=== PATIENT | female | born 2000 | race Caucasian/White ===

== ENCOUNTER → 2022-01-06 15:08 | Outpatient (BNVA) | payer OTHER, SELFPAY | PROVIDERS: Visit Provider Registered Nurse Neonatal Intensive Care | DX: J02.9 Acute pharyngitis, unspecified (principal); J06.9 Acute upper respiratory infection, unspecified | CPT/HCPCS: 87071; 87880 ==

== ENCOUNTER → 2022-01-25 10:00 | Outpatient (BNVA) | payer OTHER, SELFPAY | PROVIDERS: Visit Provider Nurse Practitioner Women's Health | DX: Z34.90 Encounter for supervision of normal pregnancy, unspecified, unspecified trimester (principal); Z32.00 Encounter for pregnancy test, result unknown; Z3A.00 Weeks of gestation of pregnancy not specified | CPT/HCPCS: 81025; 84315 ==

== ENCOUNTER → 2022-02-09 11:40 | Outpatient (BNVA) | payer OTHER, SELFPAY | PROVIDERS: Visit Provider Obstetrics & Gynecology | DX: Z34.00 Encounter for supervision of normal first pregnancy, unspecified trimester (principal) | CPT/HCPCS: 80307; 84315; 84443; 86762; 86803; 87086; 87340; 87491; 87591; 87661; 87806; 88175 ==

== ENCOUNTER 2022-02-17 08:41 | Outpatient (CLI) | payer OTHER, SELFPAY ==
[2022-02-17 09:09] LABS: Hematocrit 36.7 % (37.0-47.0); Hemoglobin 12.4 g/dL (11.5-15.3); Mean Corpuscular HGB Conc 33.8 g/dL (30.0-36.0); Mean Corpuscular Volume 88.6 fl (81-99); Mean Platelet Volume 10.4 fL (7.4-10.4); Platelet Count 237 10^3/cmm (130-400); Red Blood Count 4.14 10^6/uL (4.1-5.3); Red Cell Distribution Width 12.2 % (12.1-15.1); White Blood Count 8.4 10^3/uL (4.0-10.0)
[2022-02-20 09:59] LABS: RPR w(Moniotor) w/REFL Titer NON-REACTIVE (NON-REACTIVE)
== END 2022-02-17 08:42 | disposition home or self-care (01) ==
LOC: LAB 08:43
PROVIDERS: Visit Provider Obstetrics & Gynecology
DX: Z34.00 Encounter for supervision of normal first pregnancy, unspecified trimester (principal)
CPT/HCPCS: 36415; 80307; 85027; 86592; 86850; 86900; 87086

== ENCOUNTER → 2022-05-11 08:45 | Outpatient (BNVA) | payer OTHER, SELFPAY | PROVIDERS: Visit Provider Nurse Practitioner Women's Health | DX: Z34.00 Encounter for supervision of normal first pregnancy, unspecified trimester (principal) | CPT/HCPCS: 81000 ==

== ENCOUNTER → 2022-06-12 08:26 | Outpatient (BNVA) | payer OTHER, SELFPAY | PROVIDERS: Visit Provider Obstetrics & Gynecology | DX: Z34.00 Encounter for supervision of normal first pregnancy, unspecified trimester (principal) | CPT/HCPCS: 81000; 82950 ==

== ENCOUNTER → 2022-06-19 08:17 | Outpatient (BNVA) | payer OTHER, SELFPAY | PROVIDERS: Visit Provider Obstetrics & Gynecology | DX: Z34.00 Encounter for supervision of normal first pregnancy, unspecified trimester (principal) | CPT/HCPCS: 82951; 82952; 85025 ==

== ENCOUNTER → 2022-06-26 10:00 | Outpatient (BNVA) | payer OTHER, SELFPAY | PROVIDERS: Visit Provider Obstetrics & Gynecology | DX: Z34.00 Encounter for supervision of normal first pregnancy, unspecified trimester (principal); R82.90 Unspecified abnormal findings in urine | CPT/HCPCS: 81000; 87086 ==

== ENCOUNTER → 2022-07-13 07:55 | Outpatient (BNVA) | payer OTHER, BC, MEDICAID, SELFPAY | PROVIDERS: Visit Provider Obstetrics & Gynecology | DX: O09.899 Supervision of other high risk pregnancies, unspecified trimester (principal); Z3A.00 Weeks of gestation of pregnancy not specified | CPT/HCPCS: 81000; 87086 ==

== ENCOUNTER → 2022-07-19 09:31 | Outpatient (BNVA) | payer OTHER, BC, MEDICAID, SELFPAY | PROVIDERS: Visit Provider Obstetrics & Gynecology | DX: O09.899 Supervision of other high risk pregnancies, unspecified trimester (principal); Z3A.00 Weeks of gestation of pregnancy not specified | CPT/HCPCS: 84315; 85025 ==

== ENCOUNTER 2022-07-30 15:20 | Outpatient (CLI) | payer OTHER, BC, MEDICAID, SELFPAY ==
[2022-07-30 15:20] VITALS: BMI 26.1
[2022-07-30 15:30] VITALS: BP 117/73; PULSE 89; TEMP 36.1
[2022-07-30 15:34] VITALS: RESP 18
--- NOTE | 2022-07-30 15:34 | USR_ITS ---
PROCEDURE INFORMATION: Exam: US Biophysical Profile Without Non-Stress Test Exam date and time: 07/30/2022 4:14 PM Age: 21 years old Clinical indication: Injury or trauma; Fall; TECHNIQUE: Imaging protocol: US biophysical profile without non-stress testing. COMPARISON: US OB >= 14 weeks fetus [facility] 04/17/2022 10:01 AM FINDINGS: Amniotic fluid index: GILMER is 16.8 cm. BIOPHYSICAL PROFILE: breathing movement (BPP): 2 out of 2. body movement (BPP): 2 out of 2. tone (BPP): 2 out of 2. Amniotic fluid (BPP): 2 out of 2. US/US OB BPP wo NST [address]180 IMPRESSION: Biophysical profile score is normal at 8/8.
[2022-07-30 15:50] VITALS: BP 104/61; PULSE 90
== END 2022-07-30 16:34 | disposition home or self-care (01) ==
LOC: OPOB 15:26 → OBGYN 15:27
PROVIDERS: Visit Provider Obstetrics & Gynecology
DX: Z36.89 Encounter for other specified antenatal screening (principal); W19.XXXA Unspecified fall, initial encounter
CPT/HCPCS: 76819

== ENCOUNTER → 2022-08-03 13:50 | Outpatient (BNVA) | payer OTHER, BC, MEDICAID, SELFPAY | PROVIDERS: Visit Provider Obstetrics & Gynecology | DX: O09.899 Supervision of other high risk pregnancies, unspecified trimester (principal) | CPT/HCPCS: 84315; 87081; 87086 ==

== ENCOUNTER 2022-08-22 15:00 | Inpatient (IN) | payer OTHER, BC, MEDICAID, SELFPAY ==
[2022-08-22] VITALS (13 sets, daily range): BP systolic 114–135; BP diastolic 64–88; PULSE 85–107; RESP 16–17; TEMP 36.4–36.7; BMI 26.4
[2022-08-22 13:55] LABS: Glucose Point of Care 125 mg/dL (70-110)
[2022-08-22] MEDS: dextrose 5%-lactated ringers 1,000 ML 125 ML IV (15:18)
[2022-08-22] MEDS: ampicillin 2,000 MG in sodium chloride 0.9% (plus) 50 ML 100 MG IV (15:18)
[2022-08-22 16:50] LABS: Basophils % 0.2 %; Eosinophils % 0.2 %; Hematocrit 36.6 % (37.0-47.0); Hemoglobin 11.8 g/dL (11.5-15.3); Lymphocytes # 1.5 10^3/uL (0.8-4.8); Lymphocytes % 13.4 %; Mean Corpuscular HGB Conc 32.2 g/dL (30.0-36.0); Mean Corpuscular Hemoglobin 27.8 pg (28.0-34.0); Mean Corpuscular Volume 86.3 fl (81-99); Mean Platelet Volume 11.9 fL (7.4-10.4); Monocytes # 0.7 10^3/uL (0.2-0.9); Monocytes % 6.4 %; Neutrophils # 8.62 10^3/uL (1.8-7.7); Neutrophils % 79.4 %; Nucleated Red Blood Cells % 0 %; Platelet Count 189 10^3/cmm (130-400); Red Blood Count 4.24 10^6/uL (4.1-5.3); Red Cell Distribution Width 17.5 % (12.1-15.1); White Blood Count 10.8 10^3/uL (4.0-10.0)
[2022-08-22] MEDS: ampicillin 1,000 MG in sodium chloride 0.9% (plus) 50 ML 100 MG IV ×2 (19:12→22:58)
[2022-08-22 23:03] LABS: Glucose Point of Care 100 mg/dL (70-110)
[2022-08-23] VITALS (88 sets, daily range): BP systolic 94–153; BP diastolic 54–92; PULSE 62–117; RESP 16–18; TEMP 36.4–37.1; O2SAT 97–100
[2022-08-23 00:07] LABS: Glucose Point of Care 95 mg/dL (70-110)
[2022-08-23 02:03] LABS: Glucose Point of Care 98 mg/dL (70-110)
[2022-08-23 02:03] LABS: Glucose Point of Care 103 mg/dL (70-110)
[2022-08-23] MEDS: ampicillin 1,000 MG in sodium chloride 0.9% (plus) 50 ML 100 MG IV ×3 (02:54→11:28)
[2022-08-23] MEDS: fentaNYL 50 mcg/mL INJ 2mL IVP (05:02)
[2022-08-23] MEDS: lactated ringers 1,000 ML 999 ML IV (06:43)
--- NOTE | 2022-08-23 08:07 | ANES.PREANE2 ---
Pre-Anesthetic Assessment Height/Weight: Height 1.68 m Weight 74.389 kg Temp Pulse Resp BP Pulse Ox O2 Del Method 97.5 F L 90 16 127/91 98 Room Air 08/23/22 03:47 08/23/22 08:04 08/23/22 05:02 08/23/22 08:04 08/23/22 07:59 08/22/22 21:30 Epidural Familial anesthetic complications: None Was Beta Constantino taken within 24 hours: N/A Was Clonidine taken within 24 hours: N/A Last intake: > 8 hr Social No alcohol and No tobacco Exam alert, oriented x 3, clear to auscultation bilaterally and regular rate & rhythm Airway Mallampati: Class IV Dentition: full Anesthetic Plan ASA status: 3 Anesthesia: Regional (specify below) Risk of > 500 ml blood loss (7ml/kg in children): No Medications/Allergies Home Medications Medication Instructions Recorded Confirmed Last Taken Type prenat.vits,ave,vzw-bteg-uwedv 1 tab PO DAILY 01/25/22 08/20/22 Unknown History blood sugar diagnostic (Accu-Chek #100 ea 06/20/22 08/20/22 Unknown Rx Guide test strips) blood-glucose meter (Accu-Chek #1 ea 06/20/22 08/20/22 Unknown Rx Guide Glucose Meter) lancets 31 gauge (Comfort Touch #100 ea 06/20/22 08/20/22 Unknown Rx Ultra Thin Lancets) ferrous sulfate 325 mg (65 mg 325 mg PO DAILY 08/10/22 08/20/22 Unknown History iron) tablet Allergies Allergy/AdvReac Type Severity Reaction Status Date / Time No Known Allergies Allergy Verified 08/17/22 15:06 Current Medications Generic Name Dose Route Start Last Admin Trade Name Freq PRN Reason Stop Dose Admin Fentanyl 25 - 100 mcg 08/22/22 14:59 08/23/22 05:02 Fentanyl 50 Mcg/Ml Inj 2ml IVP 25 mcg Q1H PRN Administration SEVERE PAIN Dextrose/Lactated Ringer's 1,000 mls @ 125 mls/hr 08/22/22 15:00 08/22/22 16:00 Dextrose 5%-Lactated Ringers IV 0 mls/hr .Q8H JACK Infusion Ampicillin Sodium 1,000 mg/ 50 mls @ 100 mls/hr 08/22/22 19:00 08/23/22 07:09 Sodium Chloride IV 100 mls/hr Q4H JACK Administration Protocol Oxytocin 30 unit/ Sodium 503 mls @ 1 mls/hr 08/22/22 21:45 08/23/22 05:58 Chloride IV 8 mls/hr .Q24H JACK 8 mls/hr Titration Protocol Lactated Ringer's 1,000 mls @ 999 mls/hr 08/23/22 02:01 08/23/22 06:43 Lactated Ringers IV 999 mls/hr .Q1H1M PRN Administration See label comments Ropivacaine 100 mg in 50 mls @ 10 mls/hr 08/23/22 02:15 08/23/22 07:40 Naropin Syringe EPIDURAL 10 mls/hr .Q5H JACK Administration PFSH Anesthesia Medical History Gestational diabetes No pertinent past medical history neghx: htn,dm,thyroid,dvt/pe PCP: Dr. Marley-- [facility] Surgical History Hx of wisdom tooth extraction (~2019) No pertinent past surgical history Family History Grandfather Colon cancer Paternal--dx age 65 Diabetes Paternal Hyperlipidemia Maternal and Paternal Hypertension Maternal and Paternal Grandmother Family history of thyroid problem Maternal Hypertension Maternal and Paternal Father Hypertension Denies family history of Ovarian cancer Heart disease Breast cancer Uterine cancer Stroke Female Reproductive History : 1 Data Anesthesia 08/22/22 15:00 Short CBC 08/22/22 Range/Units 15:00 WBC 10.8 H (4.0-10.0) 10^3/uL Hgb 11.8 (11.5-15.3) g/dL Hct 36.6 L (37.0-47.0) % MCV 86.3 (81-99) fl Plt Count 189 (130-400) 10^3/cmm Neut % (Auto) 79.4 % Neut # (Auto) 8.62 H (1.8-7.7) 10^3/uL Cardiac Studies: No Data to Display
--- NOTE | 2022-08-23 08:08 | P.ANES_ITS ---
Anesthesia Procedures Procedure/Date: 08/23/22 Epidural: Time Out Performed: Yes Consents Signed: Procedure Consent Consent: requested by attending/covering physician, from patient, from other, risks and benefits reviewed, patient agrees to proceed and emergency procedure Lumbar Level: L3-L4 Epidural position: sitting Epidural procedure: ster ile prep of area, 1% lidocaine to numb the area, 18 g needle, negative for paresthesia passed, neg for paresthesia, test dose given, 1.5% xylocaine 1:200k epi (5), 0.2% Ropivacaine bolus ml (5), placed PCEA, no systemic response, sterile dressing applied, L.U.D. no apparent complications and 0.2% Ropiavacaine @ mls/hr (0) Additional Comments: TARI at 5 cm, threaded to 11 cm. Patient reported tingling sensations in feet after bolus and pain free contraction.
[2022-08-23] MEDS: ondansetron 2 mg/ML SDV 2 mL 4 MG IVP (08:29)
--- NOTE | 2022-08-23 09:25 | PM.OPHPUD ---
Labor & Delivery H&P Update Date of Procedure: August 23, 2022 Date H&P Performed: 08/17/22 H&P update information: I have reviewed H&P completed within last 30 days, I have examined patient prior to procedure and No changes to prior documentation Changes to previous documentation: The patient presents for induction at term. Her is complicated by gestational diabetes. Admission Diagnosis: IUP @ 39 w1d
[2022-08-23] MEDS: dextrose 5%-lactated ringers 1,000 ML 125 ML IV (09:30)
[2022-08-23 10:11] LABS: Glucose Point of Care 95 mg/dL (70-110)
[2022-08-23] MEDS: lidocaine 2% INJ 20 mL INJECTION (12:46)
[2022-08-23] MEDS: miSOPROStol 200 mcg Tablet 800 MCG PR (13:01)
--- NOTE | 2022-08-23 13:07 | PM.DELIVERY ---
Delivery Note: Date of delivery: August 23, 2022 Pre-delivery diagnoses: iup@ 39 weeks, gestational DM, GBS positive uti Post-delivery diagnoses: same-delivered Procedure: Delivering Physician: Dr. Teague Estimated blood loss (mL): 200 Findings: term male in the MARKEL presentation, uterine atony. Pre-Delivery Course: The patient was admitted for induction at term. She was GBS positive in her urine so GBS prophylaxis was started. She was already dilated to 4 cm on admission, so low dose pitocin was started. She received an epidural for pain management. She had AROM of clear fluid at 6-7 cm dilation. She had complete cervical dilation and began pushing . She received a total of 6 doses of ampicillin. Delivery: The patient had complete cervical dilation and began to push. The head delivered in the MARKEL position over an intact perineum under epidural anesthesia. A single nuchal cord was reduced at the perineum. The nose and mouth were bulb suctioned. The shoulders and body delivered atraumatically. The baby was placed onto the mother's abdomen. The cord was clamped and cut. Cord blood was obtained. The placenta delivered spontaneously. It was inspected and found to be intact. Inspection of the perineum revealed a second-degree midline laceration that extended up the right side of the vagina. This was repaired in the usual fashion using 0 Vicryl. There was some uterine atony after delivery of the placenta. 800 mcg of Cytotec was given orally as well as a good bimanual exam to express the clots. The bleeding was much improved after this. Estimated blood loss 200 mL. Apgars on baby were 8 at 1 minute and 9 at 5 minutes. Weight of baby is 8 pounds 15 ounces. Mother and baby were stable post delivery. History History History 1 Term Miscarriages/Ectopic Living Children Coding Level of Care Code Acute Code for Chg Fwd Diagnoses
--- NOTE | 2022-08-23 14:25 | PC.NURSE ---
Straight cath performed at this time, 500ml dark yellow urine noted. Uterus now firm and midline.
[2022-08-23] MEDS: lanolin oint 7 gm 1 APPLIC TOPICAL (15:52)
[2022-08-23] MEDS: benzocaine-menthol 78 gm Canister 1 SPRAY TOPICAL (15:53)
[2022-08-23] MEDS: ibuprofen 800 mg tablet PO ×2 (15:53→23:10)
--- NOTE | 2022-08-23 17:39 | PC.NURSE ---
Patient up to bathroom at this time, no c/o dizziness or feelings of being lightheaded. Patient then ambulated to PP room 8. No c/o dizziness.
[2022-08-23] MEDS: docusate sodium 100 mg Capsule PO (18:52)
[2022-08-24 01:38] LABS: Hematocrit 32.1 % (37.0-47.0); Hemoglobin 10.2 g/dL (11.5-15.3); Mean Corpuscular HGB Conc 31.8 g/dL (30.0-36.0); Mean Corpuscular Hemoglobin 28.2 pg (28.0-34.0); Mean Corpuscular Volume 88.7 fl (81-99); Mean Platelet Volume 11.4 fL (7.4-10.4); Platelet Count 160 10^3/cmm (130-400); Red Blood Count 3.62 10^6/uL (4.1-5.3); Red Cell Distribution Width 17.6 % (12.1-15.1); White Blood Count 11.8 10^3/uL (4.0-10.0)
--- NOTE | 2022-08-24 08:00 | ANE.PACU2 ---
Inpatient post-anesthesia follow up: Airway intact: Yes Vital signs: Temperature 98.3 F Pulse Rate 82 Respiratory Rate 18 Blood Pressure 112/76 Pulse Oximetry 97 Oxygen Delivery Me thod Room Air Oxygen Flow Rate Fraction of Inspir ed Oxygen Hydration adequate: Yes Nausea and vomiting: Yes Pain level: 1 Mental status: Baseline
--- NOTE | 2022-08-24 08:42 | P.DS_ITS ---
Discharge Providers Date of Admission: 08/22/22 15:00 Date of Discharge: August 24, 2022 Attending Provider at Admission: Sveta Teague MD Attending Provider at Discharge: Sveta Teague MD Reason for Visit Reason for Visit: NST Hospital Course Hospital Course The patient was admitted for induction at term for gestational diabetes. She was started on ampicillin for GBS prophylaxis. She received a total of 6 doses prior to delivery. Low dose pitocin was started with a max of 8 units. She had spontaneous delivery of a term male . She did well and requested discharge on day #1. Physical Exam Narrative: The patient is doing well this morning. No concerns. Breast feeding is going well. Const: COMMON NORMALS: no acute distress, average body habitus, patient oriented x3, no limitations, healthy appearing, alert and well nourished GENERAL APPEARANCE: cooperative, comfortable, well kempt and well developed ORIENTATION/CONSCIOUSNESS: Yes awake, Yes oriented to person, Yes oriented to place and Yes oriented to time Resp: COMMON NORMALS: normal respiratory effort EFFORT & INSPECTION: Yes able to speak in complete sentences GI: COMMON NORMALS: Soft to palpation and non-tender PALPATION: Yes Soft to palpation Extremity: COMMON NORMALS: no calf tenderness Neuro: COMMON NORMALS: patient oriented x3 SENSORIUM/ORIENTATION: Yes alert, Yes oriented to person, Yes oriented to place and Yes oriented to time Psych: COMMON NORMALS: mental status grossly normal, Normal thought process present, cooperative, normal affect and speech normal APPEARANCE: Yes well kempt SPEECH: Yes normal speech THOUGHT PROCESS: Normal thought process present Urinary Catheter Management: [place]: Cath Placed During This Visit: yes, but has since been removed by the nurse Reason for Continuing Indwelling Catheter: Decision to DC Catheter Urinary Catheter Date of Insertion: 08/23/22 Urinary Catheter Time of Insertion: 08:30 Date Urinary Catheter Removed: 08/23/22 Time Urinary Catheter Discontinued: 12:10 Discharge Data Studies Completed and Pending Laboratory Results WBC 11.8 10^3/uL (4.0-10.0) H 08/24/22 01:32 RBC 3.62 10^6/uL (4.1-5.3) L 08/24/22 01:32 Hgb 10.2 g/dL (11.5-15.3) L 08/24/22 01:32 Hct 32.1 % (37.0-47.0) L 08/24/22 01:32 MCV 88.7 fl (81-99) 08/24/22 01:32 MCH 28.2 pg (28.0-34.0) 08/24/22 01:32 MCHC 31.8 g/dL (30.0-36.0) 08/24/22 01:32 RDW 17.6 % (12.1-15.1) H 08/24/22 01:32 Plt Count 160 10^3/cmm (130-400) 08/24/22 01:32 MPV 11.4 fL (7.4-10.4) H 08/24/22 01:32 Neut % (Auto) 79.4 % 08/22/22 15:00 Lymph % (Auto) 13.4 % 08/22/22 15:00 [place] % (Auto) 6.4 % 08/22/22 15:00 Eos % (Auto) 0.2 % 08/22/22 15:00 Baso % (Auto) 0.2 % 08/22/22 15:00 Neut # (Auto) 8.62 10^3/uL (1.8-7.7) H 08/22/22 15:00 Lymph # (Auto) 1.5 10^3/uL (0.8-4.8) 08/22/22 15:00 [place] # (Auto) 0.7 10^3/uL (0.2-0.9) 08/22/22 15:00 Eos # (Auto) 0.0 10^3/uL (0.0-0.8) 08/22/22 15:00 Baso # (Auto) 0.0 10^3/uL (0.0-0.1) 08/22/22 15:00 Nucleated RBC % (auto) 0 % 08/22/22 15:00 Nucleated RBCs # 0.0 /100WBC 08/22/22 15:00 POC Glucose 95 mg/dL (70-110) 08/23/22 08:08 Vitals Last Vital Signs Temp 98.6 F 08/23/22 22:03 Pulse 84 08/23/22 22:03 Resp 16 08/23/22 22:03 BP 119/56 08/23/22 22:03 Pulse Ox 99 08/23/22 22:03 O2 Del Method Room Air 08/23/22 22:03 Discharge Plan Discharge Patient Disposition: Home Condition: Stable Prescriptions: Continued prenat.vits,ave,zfe-wzbj-qhonv Tablet 1 tab PO DAILY ferrous sulfate 325 mg (65 mg iron) tablet 325 mg PO DAILY (DME) blood-glucose meter [Accu-Chek Guide Glucose Meter] Misc See Rx Instructions .Route Qty: 1 0RF Rx Instructions: As directed (DME) Accu-Chek Guide test strips Strip See Rx Instructions .Route Qty: 100 12RF Rx Instructions: As directed (DME) Comfort Touch Ult Thin Lancets 31 gauge misc See Rx Instructions .Route Qty: 100 12RF Rx Instructions: As directed Discharge Orders: Discharge Order (Routine); Ordered 08/24/22 Ordered By: Sveta Teague Patient Instructions: Opioid Safety Discharge Attestations Time Spent in Discharge Care*: less than 30 min Quality Metrics Clinical Quality Measures [ No reported AMI, CVA or VTE this stay] Coding Level of Care Code Acute Code for Chg Fwd Diagnoses
[2022-08-24] MEDS: docusate sodium 100 mg Capsule PO (09:53)
[2022-08-24] MEDS: ibuprofen 800 mg tablet PO (09:53)
[2022-08-24] MEDS: prenatal vitamin Capsule 1 CAP PO (09:53)
[2022-08-24 10:00] VITALS: BP 118/62; PULSE 84; RESP 16; TEMP 36.7; O2SAT 98
[2022-08-24 16:00] VITALS: BP 112/76; PULSE 82; RESP 18; TEMP 36.8; O2SAT 97
== END 2022-08-24 16:30 | disposition home or self-care (01) | DRG 807 ==
LOC: OPOB 19:06 → OBGYN 19:06
PROVIDERS: Admitting Provider Obstetrics & Gynecology; Visit Provider Obstetrics & Gynecology
DX: O24.429 Gestational diabetes mellitus in childbirth, unspecified control (principal); Z37.0 Single live birth; O99.824 Streptococcus B carrier state complicating childbirth; Z3A.39 39 weeks gestation of pregnancy; O69.81X0 Labor and delivery complicated by cord around neck, without compression, not applicable or unspecified; O70.1 Second degree perineal laceration during delivery; O62.2 Other uterine inertia
CPT/HCPCS: 36415; 36416; 51702; 59025; 59409; 82962; 85025; 85027; 96374; J0290; J2405; J2795; J3010; J7040; J7120; J7121

== ENCOUNTER → 2022-09-07 16:00 | Outpatient (BNVA) | payer OTHER, BC, MEDICAID, SELFPAY | PROVIDERS: Visit Provider Obstetrics & Gynecology | DX: R30.9 Painful micturition, unspecified (principal) | CPT/HCPCS: 84315; 87086 ==

== ENCOUNTER → 2022-10-31 10:25 | Outpatient (BNVA) | payer OTHER, BC, MEDICAID, SELFPAY | PROVIDERS: Visit Provider Obstetrics & Gynecology | DX: Z20.2 Contact with and (suspected) exposure to infections with a predominantly sexual mode of transmission (principal); Z30.431 Encounter for routine checking of intrauterine contraceptive device; N76.0 Acute vaginitis | CPT/HCPCS: 87491; 87591 ==

== ENCOUNTER → 2023-02-14 08:57 | Outpatient (BNVA) | payer OTHER, BC, MEDICAID, SELFPAY | PROVIDERS: Visit Provider Nurse Practitioner Family | DX: R32 Unspecified urinary incontinence (principal); R35.0 Frequency of micturition; N30.01 Acute cystitis with hematuria | CPT/HCPCS: 81000 ==

== ENCOUNTER → 2023-08-15 15:48 | Outpatient (BNVA) | payer OTHER, MEDICAID, SELFPAY | PROVIDERS: Family Provider Family Medicine; Visit Provider Nurse Practitioner | DX: R30.0 Dysuria (principal) | CPT/HCPCS: 81000 ==

== ENCOUNTER → 2024-07-29 08:07 | Outpatient (BNVA) | payer OTHER, SELFPAY | PROVIDERS: Family Provider Family Medicine; Visit Provider Nurse Practitioner Women's Health | DX: N91.2 Amenorrhea, unspecified (principal); Z32.01 Encounter for pregnancy test, result positive | CPT/HCPCS: 81025; 84702; 85025 ==

== ENCOUNTER → 2024-07-31 08:56 | Outpatient (BNVA) | payer OTHER, SELFPAY | PROVIDERS: Family Provider Family Medicine; Visit Provider Obstetrics & Gynecology | DX: O26.891 Other specified pregnancy related conditions, first trimester (principal); Z3A.08 8 weeks gestation of pregnancy | CPT/HCPCS: 76801 ==

== ENCOUNTER → 2024-08-14 09:15 | Outpatient (BNVA) | payer OTHER, SELFPAY | PROVIDERS: Family Provider Family Medicine; Visit Provider Nurse Practitioner Women's Health | DX: O09.299 Supervision of pregnancy with other poor reproductive or obstetric history, unspecified trimester (principal); Z86.32 Personal history of gestational diabetes | CPT/HCPCS: 80307; 82950; 84315; 84443; 86592; 86762; 86803; 87086; 87340; 87491; 87591; 87661; 87806 ==

== ENCOUNTER → 2024-08-22 08:10 | Outpatient (BNVA) | payer OTHER, SELFPAY | PROVIDERS: Family Provider Family Medicine; Visit Provider Nurse Practitioner Women's Health | DX: O09.299 Supervision of pregnancy with other poor reproductive or obstetric history, unspecified trimester (principal); Z86.32 Personal history of gestational diabetes | CPT/HCPCS: 82951; 82952 ==

== ENCOUNTER → 2024-08-28 10:40 | Outpatient (BNVA) | payer OTHER, SELFPAY | PROVIDERS: Family Provider Family Medicine; Visit Provider Obstetrics & Gynecology | DX: Z34.81 Encounter for supervision of other normal pregnancy, first trimester (principal) | CPT/HCPCS: 84315; 87624 ==

== ENCOUNTER → 2024-09-25 08:07 | Outpatient (BNVA) | payer OTHER, SELFPAY | PROVIDERS: Family Provider Family Medicine; Visit Provider Nurse Practitioner Women's Health | DX: Z34.80 Encounter for supervision of other normal pregnancy, unspecified trimester (principal) | CPT/HCPCS: 84315 ==

== ENCOUNTER 2024-10-23 12:16 | Outpatient (CLI) | payer OTHER, SELFPAY ==
--- NOTE | 2024-10-23 12:15 | USR_ITS ---
PROCEDURE INFORMATION: Exam: US After First Trimester, Transabdominal Exam date and time: 10/23/2024 1:08 PM Age: 23 years old Clinical indication: Screening exam; Routine US, uterus; Additional info: Z34.80 - encounter for supervision of other normal pregna. . . LABS AND CLINICAL REPORTS: Last menstrual period start date: Unknown Gestational age (Established): 20 w 3 d Estimated due date (Established): 03/09/2025 TECHNIQUE: Imaging protocol: Real-time transabdominal obstetrical ultrasound of the maternal pelvis and a second or third trimester with image documentation. COMPARISON: US OB <= 14 weeks fetus [id number] 07/31/2024 9:05 AM FINDINGS: Gestation: Single live intrauterine gestation. heart rate: 153 bpm presentation and position: Cephalic. Placenta: Unremarkable. No subchorionic bleed. Placenta is [anterior. Amniotic fluid (Qualitative): Amniotic fluid is normal for gestational age. Amniotic fluid index: [Not measured. ANATOMY: midline falx: [Normal cerebellum: [Normal lateral ventricles: [Normal cisterna magna: [Normal choroid plexus: [Unremarkable face: Upper lip is [unremarkable. heart four-normal Normal/abnormal/Obscuredbyposition heart right ventricular outflow tract: [Normal heart left ventricular outflow tract: [Normal kidneys: [Normal stomach: [Normal urinary bladder: [Normal spine: [Unremarkable. Umbilical cord and insertion: [Unremarkable. upper limbs: [Visualized lower limbs: [Visualized external genitalia: Appears female on images presented. BIOMETRY: Gestational age (AUA): [20 weeks 4 days. Estimated due date (AUA): [03/08/2025. Estimated weight: 356.34 g. EFW by AC, BPD, FL, HC, [place] 1985 . Forty-seven . 8th percentile. Biparietal diameter (BPD): 4.82 cm. EGA (BPD) is 20 w 4 d. 55.9 % percentile Head circumference (HC): 18.3 cm. EGA (HC) is 20 w 5 d. 53.3 % percentile Abdominal circumference (AC): 15.33 cm. EGA (AC) is 20 w 4 d. 47.2 % percentile Femur length (FL): 3.31 cm. EGA (FL) is 20 w 2 d. 39 % percentile HC/AC: 1.19. (Normal range: 1.07 - 1.25) FL/HC: 18.09. (Normal range: 16.29 - 20.09) FL/BPD: 68.67 FL/AC: 21.59 MATERNAL: Uterus: Unremarkable. Cervix: Cervical length measures 4.1 cm. Right ovary/adnexa: Obscured by lack of adequate acoustic window. Left ovary/adnexa: Obscured by lack of adequate acoustic window. Intraperitoneal space: No intraperitoneal free fluid. US/US OB >= 14 weeks fetus [id number] IMPRESSION: Single viable intrauterine fetus cephalic presentation. Gestational age 20 weeks 4 days, TOMMIE 03/08/2025. Estimated weight 356.34 g in the 47.8 th percentile. No demonstrable abnormalities. Normal growth ratios.
== END 2024-10-23 12:17 | disposition home or self-care (01) ==
LOC: RAD 12:18
PROVIDERS: Family Provider Family Medicine; Visit Provider Obstetrics & Gynecology
DX: Z34.80 Encounter for supervision of other normal pregnancy, unspecified trimester (principal)
CPT/HCPCS: 76805

== ENCOUNTER → 2024-10-30 09:10 | Outpatient (BNVA) | payer OTHER, SELFPAY | PROVIDERS: Family Provider Family Medicine; Visit Provider Obstetrics & Gynecology | DX: O24.410 Gestational diabetes mellitus in pregnancy, diet controlled (principal); Z3A.00 Weeks of gestation of pregnancy not specified | CPT/HCPCS: 84315 ==

== ENCOUNTER → 2024-11-24 14:22 | Outpatient (BNVA) | payer OTHER, SELFPAY | PROVIDERS: Family Provider Family Medicine; Visit Provider Nurse Practitioner Women's Health | DX: O24.410 Gestational diabetes mellitus in pregnancy, diet controlled (principal); Z3A.00 Weeks of gestation of pregnancy not specified | CPT/HCPCS: 84315 ==

== ENCOUNTER → 2024-12-23 09:05 | Outpatient (BNVA) | payer OTHER, SELFPAY | PROVIDERS: Family Provider Family Medicine; Visit Provider Obstetrics & Gynecology | DX: O24.410 Gestational diabetes mellitus in pregnancy, diet controlled (principal) | CPT/HCPCS: 82950 ==

== ENCOUNTER → 2025-01-01 14:37 | Outpatient (BNVA) | payer OTHER, SELFPAY | PROVIDERS: Family Provider Family Medicine; Visit Provider Obstetrics & Gynecology | DX: O24.419 Gestational diabetes mellitus in pregnancy, unspecified control (principal) | CPT/HCPCS: 84315; 85025 ==

== ENCOUNTER → 2025-01-21 11:16 | Outpatient (BNVA) | payer OTHER, SELFPAY | PROVIDERS: Family Provider Family Medicine; Visit Provider Obstetrics & Gynecology | DX: O24.419 Gestational diabetes mellitus in pregnancy, unspecified control (principal); Z3A.00 Weeks of gestation of pregnancy not specified | CPT/HCPCS: 84315 ==

== ENCOUNTER → 2025-01-29 08:27 | Outpatient (BNVA) | payer OTHER, SELFPAY | PROVIDERS: Family Provider Family Medicine; Visit Provider Nurse Practitioner Women's Health | DX: O24.410 Gestational diabetes mellitus in pregnancy, diet controlled (principal); Z3A.00 Weeks of gestation of pregnancy not specified | CPT/HCPCS: 84315 ==

== ENCOUNTER 2025-02-11 15:51 | Outpatient (CLI) | payer OTHER, SELFPAY ==
[2025-02-11 15:51] VITALS: BMI 27.2
[2025-02-11 16:01] VITALS: BP 114/65; PULSE 83
[2025-02-11 16:16] VITALS: BP 116/68; PULSE 83
[2025-02-11 16:24] VITALS: BP 116/68; PULSE 83; RESP 17; O2SAT 98
== END 2025-02-11 16:24 | disposition home or self-care (01) ==
LOC: OPOB 15:51 → OBGYN 15:52
PROVIDERS: Family Provider Family Medicine; Visit Provider Obstetrics & Gynecology
DX: O24.419 Gestational diabetes mellitus in pregnancy, unspecified control (principal); Z3A.00 Weeks of gestation of pregnancy not specified
CPT/HCPCS: 59025; 84315; 99211